=== PATIENT | female | born 1980 | race African-American/Black ===

== ENCOUNTER 2017-04-08 08:00 | Inpatient (IN) | payer OTHER ==
[2017-04-09 09:15] VITALS: BMI 35.4
[2017-04-09] MEDS ORDERED: METHYLERGONOVINE MALEATE 0.2 MG/1 ML AMP IM PRN (09:20)
[2017-04-09] MEDS ORDERED: CITRIC ACID/SODIUM CITRATE 30 ML UNIT-DOSE CUP PO ONE (09:20)
[2017-04-09] MEDS ORDERED: oxyCODONE HCL 5 MG TABLET PO PRN (09:20)
--- NOTE | 2017-04-09 09:28 | HP ---
Past Medical History - Primary Care Physician PCP:: Ashlyn Murillo - Admission Chief Complaint: Previous Section History of Present Illness: 37 yo EDC EGA 37.5 weeks with cholestasis admitted for repeat cs and voluntary sterilization History Source: Patient - Past Medical History ...: 6 ...Para: 2 ...Term: 2 ...: 0 ...Spon : 0 ...Induced : 3 ...Multiple Gestation: 0 ...LMP: 07/19/16 ... Weeks Gestation by Dates: 37.5 ...EDC by Dates: 04/25/17 ...EDC by Sono: 04/25/17 - Past Surgical History Past Surgical History: Yes: Hx Myomectomy: No Hx Transabdominal Cerclage: No - Smoking History Smoking history: Never smoked Have you smoked in the past 12 months: No - Alcohol/Substance Use Hx Alcohol Use: No History of Substance Use: reports: None - Social History Usual Living Arrangement: Yes: With Spouse History of Recent Travel: No Home Medications - Allergies Allergies/Adverse Reactions: Allergies Allergy/AdvReac Type Severity Reaction Status Date / Time No Known Allergies Allergy Verified 04/01/17 12:00 - Home Medications Home Medications: Ambulatory Orders Vitamins (Sjr) - 1 tab PO DAILY 07/13/13 Ursodiol 250 mg PO TID 07/29/13 Ibuprofen [Motrin -] 600 mg PO QID PRN #28 tablet 04/12/17 Oxycodone HCl/Acetaminophen [Percocet 5-325 mg Tablet -] 1 tab PO Q4H #30 tablet MDD 6 04/12/17 Review of Systems - Review of Systems Constitutional: reports: No Symptoms Eyes: reports: No Symptoms HENT: reports: No Symptoms Neck: reports: No Symptoms Cardiovascular: reports: No Symptoms Respiratory: reports: No Symptoms Gastrointestinal: reports: No Symptoms Genitourinary: reports: No Symptoms Breasts: reports: No Symptoms Reported Musculoskeletal: reports: No Symptoms Integumentary: reports: No Symptoms Neurological: reports: No Symptoms Endocrine: reports: No Symptoms Hematology/Lymphatic: reports: No Symptoms Psychiatric: reports: No Symptoms Physical Exam - Maternity Vital Signs: Vital Signs Temperature 98.0 F 04/09/17 09:06 Pulse Rate 88 04/09/17 09:06 Respiratory Rate 20 04/09/17 09:06 Blood Pressure 117/72 04/09/17 09:06 O2 Sat by Pulse Oximetry (%) Constitutional: Yes: Well Nourished, No Distress Neck: Yes: WNL Cardiovascular: Yes: WNL, Regular Rate and Rhythm Lungs: Clear to auscultation Breast(s): Yes: WNL - Abdominal Exam/OB Fundal Height: 38 Number of Fetuses: Single Presentation: Vertex Monitor Mode: External Category: I Accelerations: Non-Uniform Decelerations: None - Vaginal Exam/OB Dilatation (cm): closed Amniotic Membrane Status: Intact Presentation: Vertex/Position - Physical Exam Musculoskeletal: Yes: WNL Extremities: Yes: WNL Edema: No Integumentary: Yes: WNL Psychiatric: Yes: WNL, Alert, Oriented Hemorrhage Risk Assessment - Risk Factors Medium Risk Factors: Yes: Prior , uterine surgery,or multiple laparotomies Risk Score: 1 Risk Level: Medium Risk Problem List - Problems (1) section Code(s): Z98.89 - OTHER SPECIFIED POSTPROCEDURAL STATES * DO NOT USE * (2) Cholestasis during in third trimester Code(s): O26.613 - LIVER AND BILIARY TRACT DISORD IN , THIRD TRIMESTER K83.1 - OBSTRUCTION OF BILE DUCT Assessment/Plan Previous Section Cat 1 AMA Voluntary sterilization IUP at 37 week CHolestasis Plan Repeat Section Bilateral salpingectomy
[2017-04-09] MEDS ORDERED: ELECTROLYTE-148 SOLN 1,000 ML IV SCH (09:30)
[2017-04-09] MEDS ORDERED: OXYTOCIN 20 UNITS in 0.9% NS 1,000 ML IV SCH (09:30)
[2017-04-09 11:10] LABS: ARTERIAL BLD GAS O2 SATURATION 75.6 % (90-98.9); ARTERIAL BLOOD GAS BASE EXCESS -4.5 meq/l (-2-2); ARTERIAL BLOOD GAS HCO3 23.6 meq/L (22-26)
[2017-04-09 11:14] LABS: VENOUS PH 7.36 (7.32-7.42)
[2017-04-09 11:15] LABS: VENOUS BLOOD GAS HCO3 24.1 meq/L (19-25)
[2017-04-09 11:18] LABS: ARTERIAL BLOOD GAS pH 7.24 (7.35-7.45)
[2017-04-09] MEDS ORDERED: ONDANSETRON 4 MG/2 ML VIAL IVPB PRN (11:53)
[2017-04-09] MEDS: IBUPROFEN 800 MG/8 ML IJ IVPB PRN ×2 (14:32→21:26)
[2017-04-09] MEDS ORDERED: TUBERCULIN PPD 5 TU/0.1ML VIAL ID ONE (16:45)
[2017-04-10] MEDS: IBUPROFEN 800 MG/8 ML IJ IVPB PRN (05:01)
[2017-04-10 08:21] LABS: BASOPHIL 0.6 % (0-2.0); EOSINOPHIL 0.4 % (0-4.5); MCH 27.2 pg (25.7-33.7); MCHC 32.9 g/dl (32.0-36.0); MEAN CELL VOLUME 82.7 fl (80-96); MEAN PLT VOLUME 8.6 fl (7.5-11.1); NEUTROPHILS 78.3 % (42.8-82.8); PLATELET COUNT 239 K/MM3 (134-434); RDW 13.6 % (11.6-15.6); WHITE BLOOD COUNT 9.2 K/mm3 (4.0-10.0)
[2017-04-10] MEDS ORDERED: BISACODYL 10 MG SUPP.RECT RC PRN (09:20)
[2017-04-10] MEDS: PRENATAL VITAMINS W/ FOLIC ACID TABLET (FP) PO SCH (09:53)
[2017-04-10] MEDS: SIMETHICONE 80 MG TAB.CHEW (FP) PO PRN ×3 (09:54→20:58)
[2017-04-10] MEDS: oxyCODONE HCL 5 MG TABLET PO PRN ×3 (09:54→20:59)
[2017-04-10] MEDS: IBUPROFEN 600 MG TABLET (FP) PO PRN ×3 (09:54→20:58)
[2017-04-10] MEDS ORDERED: DIPHTH,PERTUSS(ACELL),TET 0.5 ML DISP.SYRIN IM ONE (10:00)
--- NOTE | 2017-04-10 15:14 | PN ---
Progress Note (short form) - Note Progress Note: Anesthesia POD#1 S/P under spinal anesthesia patient is doing well,no N/V,ambulating fine. Eating well. Blaire Hadley MD.
--- NOTE | 2017-04-10 16:06 | PN ---
Post Progress Note - Subjective Subjective: Pt seen/evaluated and doing well. Pain controlled, tolerating diet. Ambulating, voiding, passing flatus. Denies CP/SOB/F/C/CALDWELL. Type of Delivery: Repeat C/S Vital Signs: Vital Signs Temperature 98.3 F 04/10/17 09:07 Pulse Rate 75 04/10/17 09:07 Respiratory Rate 20 04/10/17 09:07 Blood Pressure 123/64 04/10/17 09:07 O2 Sat by Pulse Oximetry (%) 100 04/09/17 12:35 Uterus: Yes: Fundus Firm, Fundus below umbilicus Incision: Yes: Dressing dry and intact Abdomen/GI: Yes: Abdomen soft, Tender, Passing flatus, Tolerating PO Lochia: Yes: Rubra Lochia, amount: Small Extremities: Yes: Calves non-tender, Edema (trace LE edema b/l) Perineum: Yes: Intact Activity: Ambulating - Labs Labs: CBC WBC 9.2 K/mm3 (4.0-10.0) D 04/10/17 07:51 RBC 3.92 M/mm3 (3.60-5.2) 04/10/17 07:51 Hgb 10.7 GM/dL (10.7-15.3) 04/10/17 07:51 Hct 32.4 % (32.4-45.2) 04/10/17 07:51 MCV 82.7 fl (80-96) 04/10/17 07:51 MCH 27.2 pg (25.7-33.7) 04/10/17 07:51 MCHC 32.9 g/dl (32.0-36.0) 04/10/17 07:51 RDW 13.6 % (11.6-15.6) 04/10/17 07:51 Plt Count 239 K/MM3 (134-434) 04/10/17 07:51 MPV 8.6 fl (7.5-11.1) 04/10/17 07:51 Neutrophils % 78.3 % (42.8-82.8) 04/10/17 07:51 Lymphocytes % 13.9 % (8-40) D 04/10/17 07:51 Monocytes % 6.8 % (3.8-10.2) 04/10/17 07:51 Eosinophils % 0.4 % (0-4.5) 04/10/17 07:51 Basophils % 0.6 % (0-2.0) 04/10/17 07:51 Problem List - Problems (1) section Code(s): Z98.89 - OTHER SPECIFIED POSTPROCEDURAL STATES * DO NOT USE * (2) Cholestasis during in third trimester Code(s): O26.613 - LIVER AND BILIARY TRACT DISORD IN , THIRD TRIMESTER K83.1 - OBSTRUCTION OF BILE DUCT Assessment/Plan 37 y/o POD#1 s/p repeat delivery, cholestasis during - AFVSS - Hgb 11.7, stable - regular diet - encourage ambulation - PO pain meds - cholestasis of , d/c ursodiol, pt states symptoms improving - routine care
[2017-04-11] MEDS: oxyCODONE HCL 5 MG TABLET PO PRN ×5 (02:51→22:10)
[2017-04-11] MEDS: SIMETHICONE 80 MG TAB.CHEW (FP) PO PRN ×5 (02:51→22:10)
[2017-04-11] MEDS: IBUPROFEN 600 MG TABLET (FP) PO PRN ×5 (02:52→22:11)
--- NOTE | 2017-04-11 09:49 | PN ---
Progress Note, Physician Chief Complaint: s/p repeat caesearan section and BTL, she offers no complaints - Current Medication List Current Medications: Active Medications Bisacodyl (Dulcolax Suppository -) 10 mg RC PRN PRN PRN Reason: CONSTIPATION Diphenhydramine HCl (Benadryl Injection -) 25 mg IVPUSH Q4H PRN PRN Reason: Pruritis Ibuprofen (Motrin -) 600 mg PO Q4H PRN PRN Reason: PAIN Last Admin: 04/11/17 06:21 Dose: 600 mg Ibuprofen (Caldolor Injection -) 800 mg IVPB Q8H PRN PRN Reason: PAIN OR FEVER Last Admin: 04/10/17 05:01 Dose: 800 mg Methylergonovine Maleate (Methergine Injection -) 0.2 mg IM Q4H PRN PRN Reason: Excessive Bleeding (L&D) Oxycodone HCl (Roxicodone -) 5 mg PO Q4H PRN PRN Reason: PAIN LEVEL 1-5 Last Admin: 04/11/17 06:22 Dose: 5 mg Oxycodone HCl (Roxicodone -) 10 mg PO Q4H PRN PRN Reason: PAIN LEVEL 6-10 Multivit/Folic Acid/Iron ( Vitamins (Sjr) -) 1 tab PO DAILY FRANSISCO Last Admin: 04/10/17 09:53 Dose: 1 tab Simethicone (Mylicon -) 80 mg PO Q4H PRN PRN Reason: GAS Last Admin: 04/11/17 06:21 Dose: 80 mg - Objective Vital Signs: Vital Signs Temperature 98 F 04/10/17 21:47 Pulse Rate 99 H 04/10/17 21:47 Respiratory Rate 18 04/10/17 21:47 Blood Pressure 119/67 04/10/17 21:47 O2 Sat by Pulse Oximetry (%) 100 04/09/17 12:35 Constitutional: Yes: Well Nourished, No Distress, Calm Eyes: Yes: Conjunctiva Clear HENT: Yes: Atraumatic, Normocephalic Neck: Yes: Supple, Trachea Midline Cardiovascular: Yes: Regular Rate and Rhythm Respiratory: Yes: Regular Gastrointestinal: Yes: Normal Bowel Sounds, Soft ...Rectal Exam: Yes: Deferred Genitourinary: Yes: WNL Breast(s): Yes: WNL Musculoskeletal: Yes: WNL Extremities: Yes: WNL Edema: No Peripheral Pulses WNL: Yes Integumentary: Yes: WNL Wound/Incision: Yes: Clean/Dry Neurological: Yes: Alert, Oriented ...Motor Strength: WNL Psychiatric: Yes: Alert, Oriented Labs: CBC, BMP 04/10/17 07:51 Assessment/Plan s/p caesearn section, day 2, continue current care
[2017-04-11] MEDS: PRENATAL VITAMINS W/ FOLIC ACID TABLET (FP) PO SCH (11:00)
[2017-04-12] MEDS: IBUPROFEN 600 MG TABLET (FP) PO PRN ×3 (04:15→19:31)
[2017-04-12] MEDS: oxyCODONE HCL 5 MG TABLET PO PRN ×3 (04:15→19:30)
--- NOTE | 2017-04-12 07:16 | DS ---
Physical Exam-CYCLE SPECIALIST Vital Signs: Vital Signs Temperature 98.0 F 04/11/17 22:00 Pulse Rate 90 04/11/17 22:00 Respiratory Rate 20 04/11/17 22:00 Blood Pressure 117/74 04/11/17 22:00 O2 Sat by Pulse Oximetry (%) 100 04/09/17 12:35 Constitutional: Yes: Well Nourished, No Distress, Calm Eyes: Yes: Conjunctiva Clear, EOM Intact HENT: Yes: Atraumatic, Normocephalic Neck: Yes: Supple, Trachea Midline Cardiovascular: Yes: Regular Rate and Rhythm Respiratory: Yes: Regular, CTA Bilaterally Gastrointestinal: Yes: Normal Bowel Sounds, Soft Labs: CBC, BMP 04/10/17 07:51 Delivery - Delivery Section: Repeat, Low Flap Transverse Type of Anesthesia: Spinal Episiotomy/Laceration: None Delivery, Single - Stages of Labor Date of Delivery: 04/09/17 Time of Delivery: 10:34 Time Placenta Delivered: 10:36 Placenta: Yes: Manual Removal - Condition of Infant Juvenile [employer] 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 Hospital Course: Patient admitted on 04/09/17 for scheduled repeat delivery due to cholestasis of . Patient underwent an uncomplicated procedure and recovery and was discharged home in stable condition on post op day 4. Condition: Good - Instructions Diet, Activity, Other Instructions: Physical activity Resume your normal everyday activity as tolerated no heavy lifting or exercise until seen by your surgeon. You may walk unlimited yasir of and climb stairs. You may resume driving the car when you feel safe and comfortable behind the wheel. No sexual activity as instructed. Wound care If you have a bandage, leave it on, and keep dry for 48-72 hours. After that time discard the outer bandage. If they are tapes on the skin under the out of bandage leave them in place. They will peel off in the next 7 to 10 days. Do Not Peel them off. You may shower the day after surgery. If there are tapes present on the skin, you may shower over them. Diet There are no dietary restrictions. Eat healthy, high-fiber foods. Drink 6 to 8 glasses of liquid each day. This will assist in keeping your bowels are regular. Pain management You may take Tylenol or acetaminophen or Ibuprofen (for example, Motrin, Advil etc.) from my pain prescription medication is ordered should be taken as prescribed for moderate to severe pain. Call MD for any of the following: Severe pain not relieved by medication Fever of 101 or higher Excessive bleeding or drainage on dressing Inability to urinate Referrals: Ashlyn Murillo MD [Primary Care Provider] - 1 Week Disposition: HOME - Home Medications Comprehensive Discharge Medication List: Ambulatory Orders Vitamins (Sjr) - 1 tab PO DAILY 07/13/13 Ursodiol 250 mg PO TID 07/29/13
[2017-04-12] MEDS: PRENATAL VITAMINS W/ FOLIC ACID TABLET (FP) PO SCH (09:42)
[2017-04-12 11:15] LABS: BASOPHIL 0.6 % (0-2.0); EOSINOPHIL 2.1 % (0-4.5); MCH 27.8 pg (25.7-33.7); MCHC 33.7 g/dl (32.0-36.0); MEAN CELL VOLUME 82.6 fl (80-96); MEAN PLT VOLUME 8.3 fl (7.5-11.1); NEUTROPHILS 68.4 % (42.8-82.8); PLATELET COUNT 278 K/MM3 (134-434)
[2017-04-12] MEDS ORDERED: oxyCODONE HCL 5 MG TABLET ONE (11:57)
[2017-04-12] MEDS: SIMETHICONE 80 MG TAB.CHEW (FP) PO PRN ×2 (12:02→19:30)
[2017-04-13] MEDS: oxyCODONE HCL 5 MG TABLET PO PRN ×2 (02:31→09:46)
[2017-04-13] MEDS: SIMETHICONE 80 MG TAB.CHEW (FP) PO PRN ×2 (02:32→09:48)
[2017-04-13] MEDS: IBUPROFEN 600 MG TABLET (FP) PO PRN ×2 (02:32→09:47)
[2017-04-13] MEDS: PRENATAL VITAMINS W/ FOLIC ACID TABLET (FP) PO SCH (09:40)
[2017-04-13] MEDS ORDERED: oxyCODONE HCL 5 MG TABLET ONE (09:45)
[2017-04-13 12:57] VITALS: BP 121/73; PULSE 72; TEMP 97.6
--- NOTE | 2017-04-13 14:49 | OP ---
Operative Note - Note: Operative Date: 04/09/17 Pre-Operative Diagnosis: Previous Section. Multiparity. Voluntary Sterilization. Cholestasis. iup at 37 weeks Operation: Repeat Section. bilateral salpingectomy Findings: normal tubes live female Post-Operative Diagnosis: Same as Pre-op Surgeon: Ashlyn Murillo Coffee Roaster Helper: Tom Elliott Anesthesia: Spinal Estimated Blood Loss (mls): 600 Operative Report Dictated: Yes
--- NOTE | 2017-04-14 11:48 | OP ---
DATE OF OPERATION: 04/09/2017 PREOPERATIVE DIAGNOSES: Previous section, intrauterine at 37 weeks, cholestasis, multiparity and voluntary sterilization. OPERATION: Repeat section and bilateral salpingectomy. POSTOPERATIVE DIAGNOSES: Previous section, intrauterine at 37 weeks, cholestasis, multiparity and voluntary sterilization. FINDINGS: Normal tubes and ovaries. Live female infant delivered. SURGEON: Teresa Murillo MD WIRE BRUSH MAKER: MARNI Davidson; MD unavailable. ANESTHESIA: Spinal. ESTIMATED BLOOD LOSS: 600 mL DESCRIPTION OF PROCEDURE: Patient was taken to the operating room, placed in supine position, prepped and draped in the usual sterile fashion. A timeout was performed in accordance with hospital regulation. A Pfannenstiel skin incision was made through the patient's previous scar. Scar was removed. Cautery was then used to go through layers of abdominal wall to the level of the fascia. Fascia was cut in the midline, and cautery was then used to open the fascia in the following fashion. Gildardo was then used to bluntly and sharply dissect the rectus muscles off the fascia. Muscles split in the midline, and peritoneal cavity was then entered and carried upward and downward. Bladder retractor was then placed. Scalpel was then used to make a low transverse uterine incision. Incision was carried up using bandage scissors. A live female infant was delivered in OT position. Nose and mouth suction performed. Shoulders were delivered without difficulty. Cord was clamped and cut. Cord blood obtained. Placenta was manually extracted from the uterus. Uterus exteriorized and cleaned with clean laparotomy pads. Delayed cord clamping was done. Cord pH was done. Infant was handed to boarding machine operator. Placenta was manually extracted from the uterus. The uterus was exteriorized and cleaned with clean laparotomy pads. Uterine incision then closed using 0 Biosyn suture, first layer in continuous and locking, second layer imbricating the first layer. Babcocks were then used to remove the using the LigaSure remove the fallopian tubes bilaterally. Specimen submitted to Pathology. Hemostasis was achieved. Uterus interiorized. Abdominal cavity cleaned with clean laparotomy pads. Peritoneum closed using 0 Biosyn suture. Fascia was then closed using 0 Vicryl suture in 2 parts. Skin was then closed using 3-0 Vicryl in subcuticular fashion. Wound was washed and dressed. Patient tolerated the procedure well, was taken to recovery room in stable condition. TERESA MURILLO M.D. [id number]
--- NOTE | 2017-04-14 16:59 | PATH ---
Surgical Pathology Report Patient Name: HANNA CAICEDO [facility]. Rec. #: [id number] /Age/Gender: 1980 (Age: 37) / F Account: [id number] Location: [facility] OBS/RESEARCH COMPUTING SPECIALIST Taken: 04/09/2017 Received: 04/10/2017 Reported: 04/14/2017 Physicians: Ashlyn Murillo M.D. Specimen(s) Received A: PLACENTA B: RIGHT FALLOPIAN TUBE C: LEFT FALLOPIAN TUBE Clinical History previous section, advanced maternal age, Cholestasis of , IAB x3 Final Diagnosis A. PLACENTA, DELIVERY: FOCALLY DISRUPTED THIRD TRIMESTER PLACENTA WITH FOCAL CALCIFICATION, THREE VESSEL UMBILICAL CORD AND UNREMARKABLE PLACENTAL MEMBRANES. B. RIGHT FALLOPIAN TUBE, SALPINGECTOMY: FULL LUMINAL PORTION OF BENIGN FALLOPIAN TUBE, INCLUDING FIMBRIATED END. C. LEFT FALLOPIAN TUBE, SALPINGECTOMY: FULL LUMINAL PORTION OF BENIGN FALLOPIAN TUBE, INCLUDING FIMBRIATED END. Electronically Signed Mario Alberto Leon M.D. Gross Description A. The specimen is received fresh labeled placenta and is a 427 gram, 22 x 14 x 3 cm. bilobed placenta with attached membranes and umbilical cord. The attached membranes are glistening and translucent and insert marginally. The umbilical cord measures 33 cm. in length and averages 1.4 cm. in diameter. The cord inserts eccentrically, 6 cm. to the nearest margin. No true knots or strictures are identified. Cut surface of the umbilical cord reveals 3 vessels. The surface is hills-blue with minimal fibrin deposition and appropriate caliber vessels. The maternal surface is red-brown with focal defects. Sectioning reveals red-brown, spongy parenchyma. No lesions are identified. Hunter Guide sections are submitted in three cassettes as follows: 1- membrane rolls and umbilical cord; 2-3- full thickness sections of placenta. B. Received in formalin, labeled "right fallopian tube" is a 6.1 cm long by up to 0.7 cm in diameter fallopian tube including the fimbriated end. No focal lesions are identified. Hunter Guide sections are submitted in one cassette. C. Received in formalin, labeled "left fallopian tube" is a 5.2 cm long by up to 0.6 cm in diameter fallopian tube including the fimbriated end. No focal lesions are identified. Hunter Guide sections are submitted in one cassette. [facility]/04/13/2017 [facility]/04/13/2017
== END 2017-04-13 12:40 | disposition home or self-care (01) | DRG 765 ==
LOC: JLDR 04-09 08:35 → J3W 04-09 13:39
PROVIDERS: ADMIT Obstetrics & Gynecology; ATTEND Obstetrics & Gynecology
PROC: 10D00Z1 Extraction of Products of Conception, Low, Open Approach (ICD-10-PCS; principal; 2017-04-09)
PROC: 0UL70ZZ Occlusion of Bilateral Fallopian Tubes, Open Approach (ICD-10-PCS; 2017-04-09)
DX: O34.211 Maternal care for low transverse scar from previous cesarean delivery (principal); K83.1 Obstruction of bile duct; O26.62 Liver and biliary tract disorders in childbirth; N85.8 Other specified noninflammatory disorders of uterus; Z3A.37 37 weeks gestation of pregnancy; Z30.2 Encounter for sterilization; Z37.0 Single live birth
CPT/HCPCS: 36415; 36600; 82803; 85025; 88302-TC; 88307-TC; 90715

== ENCOUNTER 2019-05-31 09:45 | Day surgery (SDC) | payer OTHER ==
[2019-05-30 17:09] VITALS: BMI 37.3
[2019-05-31 11:55] VITALS: TEMP 98
[2019-05-31 13:05] VITALS: BP 115/80; PULSE 66
--- NOTE | 2019-06-01 17:12 | PATH ---
Surgical Pathology Report Patient Name: HANNA CAICEDO [facility]. Rec. #: [id number] /Age/Gender: 1980 (Age: 39) / F Account: [id number] Location: U-ENDOSCOPY Taken: 05/31/2019 Received: 05/31/2019 Reported: 06/01/2019 Physicians: Herminio Orellana D.O. Specimen(s) Received A: RIGHT COLON B: TRANSVERSE COLON C: DESCENDING COLON D: RECTAL POLYP #1 E: RECTAL POLYP #2 Clinical History Family history of GI cancer. Postoperative diagnosis: Polyp Final Diagnosis A. RIGHT COLON, BIOPSY: COLONIC MUCOSA WITH FOCAL REACTIVE LYMPHOID AGGREGATE. NO HISTOLOGIC EVIDENCE OF MICROSCOPIC COLITIS. B. TRANSVERSE COLON, BIOPSY: COLONIC MUCOSA WITH FOCAL REACTIVE LYMPHOID AGGREGATE. NO HISTOLOGIC EVIDENCE OF MICROSCOPIC COLITIS. C. DESCENDING COLON, BIOPSY: COLONIC MUCOSA WITH FOCAL REACTIVE LYMPHOID AGGREGATE. NO HISTOLOGIC EVIDENCE OF MICROSCOPIC COLITIS. D. RECTAL POLYP #1, POLYPECTOMY: TUBULAR ADENOMA. E. RECTAL POLYP #2, POLYPECTOMY: HYPERPLASTIC POLYP. Electronically Signed Estevan Hernandez M.D. Addendum Reported: 06/07/2019 Addendum Diagnosis Immunohistochemistry (IHC) Testing (on block D1) for Mismatch Repair (MMR) Proteins performed at [facility] in [place], [place] ([id number]) and interpreted at [facility] show the following results: MLH1 Intact nuclear expression MSH2 Intact nuclear expression MSH6 Intact nuclear expression PMS2 Intact nuclear expression Background nonneoplastic tissue/internal control with intact nuclear expression IHC Interpretation: No loss of nuclear expression of MMR proteins: low probability of microsatellite instability-high(MSI-H) Estevan Hernandez M.D. Gross Description A. Received in formalin, labeled "right colon" are 3 mera, irregular portions of soft tissue measuring 0.1 to 0.3 cm. in greatest dimension. The specimens are submitted in toto in one cassette. B. Received in formalin, labeled "transverse colon" are 3 mera, irregular portion of soft tissue measuring 0.1 to 0.3 cm. in greatest dimension. The specimens are submitted in toto in one cassette. C. Received in formalin, labeled "descending colon" is a mera, irregular portions of soft tissue measuring 0.3 cm. in greatest dimension. The specimen is submitted in toto in one cassette. D. Received in formalin, labeled "rectal polyp #1" are 2 mera, irregular portions of soft tissue measuring 0.1 to 0.4 cm. in greatest dimension. The specimens are submitted in toto in one cassette. E. Received in formalin, labeled "rectal polyp #2" are 2 mera, irregular portion of soft tissue measuring 0.2 cm. in greatest dimension. The specimens are submitted in toto in one cassette. __ BERTHA/05/31/2019 kelli/05/31/2019
== END 2019-05-31 12:50 | disposition home or self-care (01) ==
LOC: JASU-ENDO 09:45
PROVIDERS: ATTEND Internal Medicine Gastroenterology
PROC: 0DBP8ZX Excision of Rectum, Via Natural or Artificial Opening Endoscopic, Diagnostic (ICD-10-PCS; principal; 2019-05-31 09:45)
DX: Z12.11 Encounter for screening for malignant neoplasm of colon (principal); Z80.0 Family history of malignant neoplasm of digestive organs; K62.1 Rectal polyp; K64.8 Other hemorrhoids
CPT/HCPCS: 84703; 88305-TC

== ENCOUNTER 2021-06-06 09:10 | Emergency (ER) | payer OTHER ==
[2021-06-06 09:18] VITALS: BMI 35.4
[2021-06-06] MEDS ORDERED: FAMOTIDINE 20 MG/50 ML IVPB 20 MG/50 ML MG IVPB ONE ×2 (10:01→10:05)
[2021-06-06] MEDS ORDERED: METOCLOPRAMIDE HCL INJECTION 10 MG/2 ML VIAL IVPB ONE (10:01)
[2021-06-06] MEDS ORDERED: METOCLOPRAMIDE HCL INJECTION 10 MG/2 ML VIAL ONE (10:05)
[2021-06-06 10:44] LABS: EOS % 1.1 % (0-4.5); HEMATOCRIT 38.6 % (32.4-45.2); HEMOGLOBIN 12.6 GM/dL (10.7-15.3); LYMPH % 38.6 % (8-40); MCH 25.9 pg (25.7-33.7); MCHC 32.8 g/dl (32.0-36.0); MEAN CELL VOLUME 79.2 fl (80-96); MEAN PLT VOLUME 8.7 fl (7.5-11.1); MONO % 10.4 % (3.8-10.2); NEUT % 48.9 % (42.8-82.8); PLATELET COUNT 317 10^3/uL (134-434); RBC 4.87 M/mm3 (3.60-5.2); RDW 14.8 % (11.6-15.6); WHITE BLOOD COUNT 3.2 K/mm3 (4.0-10.0)
[2021-06-06 11:13] LABS: HCG,QUALITATIVE URINE Negative
[2021-06-06 11:16] LABS: CALCIUM 9.4 mg/dL (8.5-10.1)
[2021-06-06 11:17] LABS: ALBUMIN 3.9 g/dl (3.4-5.0); BLOOD UREA NITROGEN 7.3 mg/dL (7-18)
[2021-06-06 11:19] LABS: EPI CELLS >36 /uL (0-25.1); HYALINE CASTS 1 /uL (0-3.1); PH,URINE 6.5 (5.0-8.0); URINE APPEARANCE CLEAR; URINE BACTERIA 1106 /uL (0-1359); URINE BILIRUBIN NEGATIVE (NEGATIVE); URINE COLOR YELLOW; URINE GLUCOSE (UA) NEGATIVE (NEGATIVE); URINE KETONE TRACE (NEGATIVE); URINE LEUK ESTERASE TRACE (NEGATIVE); URINE NITRITE NEGATIVE (NEGATIVE); URINE PROTEIN NEGATIVE (NEGATIVE); URINE RBC 10 /uL (0-23.9); URINE WBC 18 /uL (0-25.8)
[2021-06-06 11:20] LABS: CREATININE 0.7 mg/dL (0.55-1.3)
[2021-06-06 11:22] LABS: BILIRUBIN,TOTAL 0.6 mg/dL (0.2-1); TOT PROT 8.1 g/dl (6.4-8.2)
[2021-06-06 15:02] VITALS: BP 116/68; PULSE 67; TEMP 97.8
== END 2021-06-06 15:08 | disposition home or self-care (01) ==
LOC: JER 09:10
PROC: 3E033NZ Introduction of Analgesics, Hypnotics, Sedatives into Peripheral Vein, Percutaneous Approach (ICD-10-PCS; principal; 2021-06-06)
PROC: 3E033GC Introduction of Other Therapeutic Substance into Peripheral Vein, Percutaneous Approach (ICD-10-PCS; 2021-06-06)
DX: R10.13 Epigastric pain (principal); K29.50 Unspecified chronic gastritis without bleeding
CPT/HCPCS: 36415; 76705-TC; 80053; 81003; 83690; 84703; 85025; 87086; 99284-25

== ENCOUNTER 2023-09-08 21:20 | Emergency (ER) | payer OTHER ==
[2023-09-08 21:36] VITALS: BP 158/76; RESP 18; TEMP 97.9; BMI 35.6
[2023-09-08] MEDS ORDERED: SODIUM CHLORIDE 0.9% 500 ML INFUS.BAG IV STA (22:32)
[2023-09-08 22:36] LABS: BASO % 0.8 % (0-2.0); EOS % 0.5 % (0-4.5); HEMOGLOBIN 11.5 GM/dL (10.7-15.3); LYMPH % 27.5 % (8-40); MCH 24.7 pg (25.7-33.7); MCHC 31.8 g/dl (32.0-36.0); MEAN CELL VOLUME 77.4 fl (80-96); MONO % 6.4 % (3.8-10.2); NEUT % 64.8 % (42.8-82.8); PLATELET COUNT 321 10^3/uL (134-434); RBC 4.65 M/mm3 (3.60-5.2); RDW 15.9 % (11.6-15.6)
[2023-09-08 22:46] LABS: INR 1.1 (0.83-1.09); PROTHROMBIN TIME (PATIENT) 12.7 SEC (9.7-13.0)
[2023-09-08 22:49] LABS: ACTIVATED PTT 29.2 SECONDS (25.2-36.5)
[2023-09-08 22:56] LABS: CALCIUM 9.4 mg/dL (8.5-10.1); POTASSIUM 4.2 mmol/L (3.5-5.1)
[2023-09-08 22:58] LABS: ALBUMIN 3.7 g/dl (3.4-5.0); BLOOD UREA NITROGEN 11.9 mg/dL (7-18); MAGNESIUM 2.2 mg/dL (1.8-2.4)
[2023-09-08 23:00] LABS: CREATININE 0.8 mg/dL (0.55-1.3)
[2023-09-08 23:02] LABS: TOT PROT 7.6 g/dl (6.4-8.2)
[2023-09-08 23:07] LABS: BILIRUBIN,TOTAL 0.2 mg/dL (0.2-1)
[2023-09-08 23:58] VITALS: PULSE 103
== END 2023-09-09 00:28 | disposition home or self-care (01) ==
LOC: JER 21:20
DX: F41.9 Anxiety disorder, unspecified (principal); F12.90 Cannabis use, unspecified, uncomplicated; R00.2 Palpitations; Z20.822 Contact with and (suspected) exposure to COVID-19
CPT/HCPCS: 0241U-QW; 36415; 71046-TC-FY; 80053; 83735; 84439; 84443; 84484; 84703; 85025; 85610; 85730; 93005; 93010; 99285-25

== ENCOUNTER 2024-10-18 06:58 | Day surgery (SDC) | payer OTHER ==
[2024-10-07 11:18] VITALS: BMI 34.4
[2024-10-18 10:37] VITALS: TEMP 98
[2024-10-18 11:07] VITALS: RESP 21
[2024-10-18 11:20] VITALS: BP 102/58; PULSE 70
== END 2024-10-18 11:22 | disposition home or self-care (01) ==
LOC: JASU-ENDO 06:58
PROVIDERS: ATTEND Internal Medicine Gastroenterology
PROC: 0DBN8ZX Excision of Sigmoid Colon, Via Natural or Artificial Opening Endoscopic, Diagnostic (ICD-10-PCS; principal; 2024-10-18 10:30)
DX: Z12.11 Encounter for screening for malignant neoplasm of colon (principal); D12.5 Benign neoplasm of sigmoid colon; K64.8 Other hemorrhoids; Z86.0100 Personal history of colon polyps, unspecified
CPT/HCPCS: 81025; 88305-TC

== ENCOUNTER 2024-10-25 06:44 | Day surgery (SDC) | payer OTHER ==
[2024-10-13 09:36] VITALS: BMI 34.4
[2024-10-25] MEDS: TETRACAINE/BENZOCAINE/BUTAMBEN 20 GM SPR TP ONE (11:17)
[2024-10-25 11:43] VITALS: TEMP 98
[2024-10-25 12:31] VITALS: RESP 17
[2024-10-25 12:33] VITALS: BP 128/78; PULSE 65
== END 2024-10-25 12:25 | disposition home or self-care (01) ==
LOC: JASU-ENDO 06:44
PROVIDERS: ATTEND Internal Medicine Gastroenterology
PROC: 0DB78ZX Excision of Stomach, Pylorus, Via Natural or Artificial Opening Endoscopic, Diagnostic (ICD-10-PCS; 2024-10-25)
PROC: 0DB68ZX Excision of Stomach, Via Natural or Artificial Opening Endoscopic, Diagnostic (ICD-10-PCS; 2024-10-25)
PROC: 0DB98ZX Excision of Duodenum, Via Natural or Artificial Opening Endoscopic, Diagnostic (ICD-10-PCS; principal; 2024-10-25 10:30)
DX: K29.50 Unspecified chronic gastritis without bleeding (principal); K31.89 Other diseases of stomach and duodenum
CPT/HCPCS: 81025; 88305-TC; 88342-TC